=== PATIENT | female | born 1970 | race Asian ===

== ENCOUNTER 2022-07-10 21:26 | Emergency (ER) | payer OTHER ==
[~2022-07-10] VITALS: Ht 157.5 cm; Wt 50.8 kg
[2022-07-10 21:26] VITALS: BP 159/86; TEMP 100.6
[2022-07-10 21:54] LABS: PLATELET COUNT 232 K/uL (152-353)
[2022-07-10 22:02] LABS: POTASSIUM 4.2 mmol/L (3.6-5.2)
[2022-07-11] MEDS ORDERED: CARB25TA29 PO (11:47)
[2022-07-11] MEDS ORDERED: TYLENOL325 MG PO (11:47)
[2022-07-11] MEDS ORDERED: FURO20TA67 PO (11:48)
[2022-07-11] MEDS ORDERED: INSULIN AS100 UNIT/2 SC (11:49)
[2022-07-11] MEDS ORDERED: ESCITALOPRAM10 MG PO (11:50)
[2022-07-11] MEDS ORDERED: MELATONIN3 M1 PO (11:51)
[2022-07-11] MEDS ORDERED: METO25TA4 PO (11:52)
[2022-07-11] MEDS ORDERED: MIDODRINE10 MG PO (11:55)
[2022-07-11] MEDS ORDERED: PROBIOTIC FORMU1 CAP PO (11:56)
[2022-07-11] MEDS ORDERED: OMEPRAZOLE DR40 MG PO (11:56)
[2022-07-11] MEDS ORDERED: SENNA PLUS 50-81 CAP PO (11:58)
[2022-07-11] MEDS ORDERED: QUETIAPINE50 MG PO (11:59)
[2022-07-11] MEDS ORDERED: CARAFATE1 GM PO (12:00)
[2022-07-11] MEDS ORDERED: LORA0.5T17 PO (12:01)
== END 2022-07-10 23:30 | disposition still patient (30) ==
LOC: ED 21:26
PROVIDERS: Emergency Medicine
DX: F03.911 Unspecified dementia, unspecified severity, with agitation (principal); Z11.52 Encounter for screening for COVID-19; Z04.6 Encounter for general psychiatric examination, requested by authority
CPT/HCPCS: 36415; 80053; 85027; 87635; 93005; 99283; U0003

== ENCOUNTER 2022-09-11 15:35 | Emergency (ER) | payer OTHER ==
[~2022-09-11] VITALS: Ht 157.5 cm; Wt 53.5 kg
[~2022-09-11 15:35] MED LIST: CARAFATE1 GM PO; CARB25TA29 PO; DOCUSATE SODIUM1 TA1 PO; ESCI10TA PO; ESCITALOPRAM10 MG PO; FURO20TA67 PO; INSU100P SC; INSULIN AS100 UNIT/2 SC; LORA0.5T17 PO; MAGNSUS68 PO; MELATONIN3 M1 PO; METO-837 PO; METO25TA4 PO; MIDODRINE10 MG PO; MIDODRINE5 MG PO; MIRALAX 17GM PAK PO; OMEPRAZOLE DR40 MG PO; PANTOPRAZOLE 40MG TA PO; PROBIOTIC FORMU1 CAP PO; QUET25TA2 PO; QUETIAPINE50 MG PO; SUCRALFATE1 GM PO; TYLENOL325 MG PO
[2022-09-11 15:40] VITALS: BP 138/92; TEMP 98
[2022-09-11 16:26] LABS: PLATELET COUNT 210 K/uL (152-353)
[2022-09-11 16:35] LABS: POTASSIUM 3.9 mmol/L (3.6-5.2)
[2022-09-11] MEDS ORDERED: BUSPIRONE HYDR7.5 MG PO (17:24)
[2022-09-11] MEDS ORDERED: ZIPR20CA PO (17:31)
[2022-09-11] MEDS ORDERED: MELATONIN3 M1 PO (17:35)
[2022-09-11] MEDS ORDERED: MILK OF MA400 MG/5 M PO (17:36)
[2022-09-11] MEDS ORDERED: POLYETHYLE17 GM/SCO1 PO (17:37)
[2022-09-11] MEDS ORDERED: QUETIAPINE50 MG PO (17:39)
[2022-09-11] MEDS ORDERED: SPIRONOLACT25 MG PO (17:40)
== END 2022-09-11 17:08 | disposition still patient (30) ==
LOC: ED 15:35
PROVIDERS: Emergency Medicine
DX: R46.89 Other symptoms and signs involving appearance and behavior (principal); I50.9 Heart failure, unspecified; Z11.52 Encounter for screening for COVID-19; Z04.6 Encounter for general psychiatric examination, requested by authority
CPT/HCPCS: 36415; 80053; 81002; 85027; 87635; 99283; U0003